=== PATIENT | female | born 1945 | race Caucasian/White ===

== ENCOUNTER 2022-01-03 15:24 | Emergency (ER) | payer OTHER, MEDICAID ==
[~2022-01-03] VITALS: Ht 154.9 cm; Wt 70.0 kg
[2022-01-03] MEDS ORDERED: TRAMADOL 50MG TABLET PO ONE (16:15)
[2022-01-03] MEDS: ONDANSETRON 4MG ODT PO ONE ×2 (16:29→16:37)
[2022-01-03] MEDS ORDERED: ACETAMINOPHEN 325MG TABLET PO ONE (19:45)
[2022-01-03 20:00] VITALS: BP 160/69
[2022-01-03] MEDS ORDERED: DIAZ2TAB MT (20:11)
== END 2022-01-03 20:34 | disposition home or self-care (01) ==
LOC: ER 15:24
DX: M54.50 Low back pain, unspecified (principal); M54.30 Sciatica, unspecified side; M25.562 Pain in left knee; E11.649 Type 2 diabetes mellitus with hypoglycemia without coma; E78.00 Pure hypercholesterolemia, unspecified; I10 Essential (primary) hypertension; Z79.4 Long term (current) use of insulin; Z88.6 Allergy status to analgesic agent
CPT/HCPCS: 73552; 73562; 82962; 93971; 99284; Q0162

== ENCOUNTER 2022-02-05 16:10 | Emergency (ER) | payer OTHER, MEDICAID ==
[~2022-02-05] VITALS: Ht 160 cm; Wt 61.0 kg
[~2022-02-05 16:10] MED LIST: DIAZ2TAB MT
[2022-02-05] MEDS ORDERED: DIAZEPAM 5 MG TABLET PO ONE (18:15)
[2022-02-05] MEDS ORDERED: DIAZ2TAB MT (19:44)
[2022-02-05 19:50] VITALS: BP 150/80
== END 2022-02-05 19:50 | disposition home or self-care (01) ==
LOC: ER 16:10
DX: M54.40 Lumbago with sciatica, unspecified side (principal); G89.29 Other chronic pain; I10 Essential (primary) hypertension; E11.9 Type 2 diabetes mellitus without complications; E78.00 Pure hypercholesterolemia, unspecified
CPT/HCPCS: 72131; 99284